=== PATIENT | female | born 1950 | race Caucasian/White ===

== ENCOUNTER 2018-02-20 06:35 | Emergency (ER) | payer BC, MEDICARE ==
[2018-02-20] MEDS ORDERED: ONDANSETRON HCL IV 4 MG/2 ML VIAL IVP ONE (07:03)
[2018-02-20] MEDS ORDERED: ACETAMINOPHEN 1,000 MG/100 ML BTL IVPB ONE (07:03)
--- NOTE | 2018-02-20 07:09 | Emergency Department Record ---
History of Present Illness - General Chief Complaint: Abdominal Pain Stated Complaint: ABD PAIN Time Seen by Provider: 02/20/18 06:57 Source: Patient Mode of Arrival: Ambulatory Limitations: No limitations - History of Present Illness Initial Comments: 67 yo female presents with abdominal pain that woke her about 3 hours ago at 4am. The pain is in the epigastric area and RUQ. She feels like it is a gassy bloated feeling. No lower abdominal pain. No vomiting but she has some nausea. No diarrhea. She did have two loose stools. No fevers. She does have her gall bladder without history of abdominal surgery. She has a history of reflux with prior Butler's esophagus. She has had mild similar symptoms at different times in the past. PCP is Dr. Doherty in [place]. MD Complaint: Abdominal pain Onset/Timin -: Hour(s) (3) Location: Epigastric, RUQ Radiation: RUQ Migration to: Epigastric, RUQ Severity: Moderate Severity scale (1-10): 8 Quality: Fullness Consistency: Constant Improves With: Nothing Worsens With: Nothing Associated Symptoms: Nausea - Related Data Patient : No Home Medications Medication Instructions Recorded Confirmed Last Taken Alprazolam 0.25 mg PO BID PRN 02/20/18 02/20/18 Unknown Levothyroxine Sodium 112 mcg PO DAILY 02/20/18 02/20/18 Unknown Losartan/Hydrochlorothiazide 1 tab PO DAILY 02/20/18 02/20/18 Unknown [Losartan-Hctz 50-12.5 mg Tab] Allergies Allergy/AdvReac Type Severity Reaction Status Date / Time No Known Drug Allergies Allergy Verified 02/20/18 06:44 Travel Screening - Travel/Exposure Within Last 30 Days Have you traveled within the last 30 days?: No Review of Systems Constitutional: Denies: Chills, Fever, Malaise, Weakness Eyes: Denies: Eye discharge, Eye pain ENT: Denies: Congestion, Ear pain, Epistaxis, Throat pain Respiratory: Denies: Cough, Dyspnea, Hemoptysis, Wheezes Cardiovascular: Denies: Chest pain, Palpitations, Syncope Endocrine: Denies: Fatigue Gastrointestinal: Reports: As per HPI, Abdominal pain, Nausea. Denies: Constipation, Diarrhea, Hematemesis, Hematochezia, Melena, Vomiting Genitourinary: Denies: Dysuria, Urgency Musculoskeletal: Denies: Arthralgia, Back pain, Joint swelling, Myalgia, Neck pain Skin: Denies: Bruising, Change in color, Rash Neurological: Denies: Confusion, Headache Psychiatric: Denies: Anxiety Hematological/Lymphatic: Denies: Blood Clots, Easy bleeding, Easy bruising, Swollen glands Past Medical History - SOCIAL HISTORY Smoking Status: Never smoker Alcohol Use: None Drug Use: None - RESPIRATORY Hx Respiratory Disorders: No - CARDIOVASCULAR Hx Cardio Disorders: Yes Hx Hypertension: Yes - NEURO Hx Neuro Disorders: No - GI Hx GI Disorders: Yes Hx Reflux: Yes - Hx Genitourinary Disorders: No - ENDOCRINE Hx Endocrine Disorders: Yes Hx Thyroid Disease: Yes - MUSCULOSKELETAL Hx Musculoskeletal Disorders: Yes Hx Arthritis: Yes - PSYCH Hx Psych Problems: Yes Hx Anxiety: Yes - HEMATOLOGY/ONCOLOGY Hx Hematology/Oncology Disorders: No Family Medical History Any Significant Family History?: Yes Hx Cancer: Father, Mother, Grandparents Hx Dementia: Mother Hx Heart Disease: Grandparents Physical Exam - General General Appearance: Alert, Oriented x3, Cooperative, No acute distress Limitations: No limitations - Head Head exam: Atraumatic, Normal inspection - Eye Eye exam: Normal appearance. negative: Conjunctival injection, Periorbital swelling, Scleral icterus - ENT ENT exam: Normal exam, Mucous membranes moist, Normal orophraynx Ear exam: Normal external inspection Nasal Exam: Normal inspection Mouth exam: Normal external inspection Teeth exam: Normal inspection Throat exam: Normal inspection - Neck Neck exam: Normal inspection, Full ROM. negative: Tenderness - Respiratory Respiratory exam: Normal lung sounds bilaterally. negative: Respiratory distress - Cardiovascular Cardiovascular Exam: Regular rate, Normal rhythm, Normal heart sounds - GI/Abdominal GI/Abdominal exam: Soft, Tenderness (very soft abdomen, mild RUQ and epigatric tenderness). negative: Distended, Guarding, Rebound, Rigid - Rectal Rectal exam: Deferred - exam: Deferred - Extremities Extremities exam: Normal inspection, Full ROM, Normal capillary refill. negative: Calf tenderness, Pedal edema, Tenderness - Back Back exam: Denies: CVA tenderness (R), CVA tenderness (L) - Neurological Neurological exam: Alert, Normal gait, Oriented X3 - Psychiatric Psychiatric exam: Normal affect, Normal mood. negative: Agitated, Anxious - Skin Skin exam: Dry, Intact, Normal color, Warm Course Vital Signs 02/20/18 06:41 Temperature 98 F Pulse Rate [ 107 H Pulse Ox Probe] Respiratory 16 Rate Blood Pressure 152/87 [Left Arm] Pulse Ox 100 - Reevaluation(s) Reevaluation #1: Last meal was a bowel of ice cream at 9pm 02/20/18 07:09 EKG#1 [id number] NSR Rate 78 Intervals normal [place] normal ST normal 02/20/18 07:25 No acute changes on the CBC 02/20/18 07:59 No acute changes on the Lipase or LFT's The Glucose was 153 02/20/18 08:34 The US demonstrates multiple gall stones, no wall thickening or edema, no pericholecystic fluid The patient reports nausea and pain have resolved. 02/20/18 The case was discussed with Dr Lund. The patient has controlled pain, normal labs and no US findings of acute cholecystitis. She was referred for outpatient follow up Medical Decision Making - Lab Data Result diagrams: 02/20/18 06:45 02/20/18 06:45 Disposition Disposition: Discharge Clinical Impression: Gall bladder stones Abdominal pain Qualifiers: Abdominal location: epigastric Qualified Code(s): R10.13 - Epigastric pain Disposition: Home, Self-Care Condition: (1) Good Instructions: Biliary Colic (ED) Additional Instructions: Low fat low spicy diet this week You will be called for an appointment with Dr Lund next week in the surgery clinic Return if you have any vomiting, pain, fever or concerns Referrals: Warren Lund [DOCTOR OF OSTEOPATH] - [facility] Specialty [facility] [Provider Group] Forms: Patient Portal Access Time of Disposition: 09:17 Quality - Blood Pressure Screening Does Patient Have Any of the Following: No Blood Pressure Classification: Hypertensive Reading Systolic Measurement: 147 Diastolic Measurement: 98 Pre-Hypertensive Follow-up Interventions: Referral to alternative/primary care provider.
[2018-02-20 07:11] LABS: BASO % 0.2 % (0-6); EOS % 1.7 % (0-6); GRAN % 68.8 % (47-80); HEMATOCRIT 38.4 % (35.0-47.0); LYMPH % 22.2 % (16-45); MEAN CELL VOLUME 86.5 fl (81-97); MEAN CORPUSCULAR HGB CONC 31.3 g/dl (32-36); MEAN PLATELET VOLUME 8.8 fl (7.4-10.4); MONO % 7.1 % (0-9); PLATELET COUNT 245 K/uL (130-400); RED BLOOD COUNT 4.44 M/uL (3.80-5.40); RED CELL DISTRIBUTION WIDTH 15.2 % (11.5-14.5); WHITE BLOOD COUNT W/O DIFF 5.2 K/uL (4.2-12.2)
[2018-02-20 07:25] LABS: BLOOD UREA NITROGEN 19 mg/dL (8-23); CREATININE 0.8 mg/dL (0.5-0.9); EST GLOMERULAR FILTRATION RATE > 60 mL/min
[2018-02-20 07:26] LABS: TOTAL PROTEIN 7.5 g/dL (6.6-8.7)
[2018-02-20 07:28] LABS: GLUCOSE,RANDOM 153 mg/dL (74-109)
[2018-02-20 07:30] LABS: ALB/GLOB RATIO 1.3 (1.1-1.8); ALBUMIN 4.2 g/dL (4.0-5.0); ALT/SGPT 29 U/L (<33); AST/SGOT 28 U/L (10.0-35.0)
[2018-02-20 07:31] LABS: ALKALINE PHOSPHATASE 102 U/L (35-104); LIPASE 59 U/L (13-60)
--- NOTE | 2018-02-21 16:27 | ULTRASOUND REPORT ---
EXAM: ULTRASOUND ABDOMEN, COMPLETE HISTORY: EPIGASTRIC PAIN. TECHNIQUE: Routine ultrasound examination of the abdomen is performed. COMPARISON: None. FINDINGS: The pancreatic tail is obscured by overlying bowel gas. The pancreas is otherwise visualized and normal in appearance. The abdominal aorta is without aneurysmal dilatation. The inferior vena cava appears patent. The liver is not optimally visualized due to body habitus. To the extent visualized, the hepatic parenchyma is homogeneous. No hepatic mass is seen. No intra- nor extrahepatic biliary ductal dilatation is identified with the common hepatic duct measuring 2 mm. There are multiple mobile gallstones. No gallbladder wall thickening or pericholecystic fluid though there is a reported positive sonographic Ying sign. The spleen is at the upper limits of normal in size measuring 12 x 5 x 9 cm. No focal splenic lesion noted. Screening evaluation of the kidneys does not demonstrate hydronephrosis nor mass with the right kidney measuring 11 cm in length and the left kidney measuring 11 cm in length. There is borderline pelvic caliectasis on the left versus small peripelvic renal cysts. IMPRESSION: 1. CHOLELITHIASIS WITHOUT GALLBLADDER WALL THICKENING OR PERICHOLECYSTIC FLUID THOUGH THERE IS A POSITIVE SONOGRAPHIC YING SIGN. 2. BORDERLINE PELVIC CALIECTASIS ON THE LEFT VERSUS SMALL PERIPELVIC RENAL CYSTS. 3. BORDERLINE SPLENOMEGALY. JOB NUMBER: [id number] [facility]
== END 2018-02-20 09:31 | disposition home or self-care (01) ==
LOC: ER 06:35
DX: K80.20 Calculus of gallbladder without cholecystitis without obstruction (principal); R10.13 Epigastric pain; R11.0 Nausea; R19.7 Diarrhea, unspecified; I10 Essential (primary) hypertension
CPT/HCPCS: 99284 ×2; 96365; 96366; 96375; 83690; 85025; 85730; 85610; 80053; 76700; 93005; 93010; J2405

== ENCOUNTER 2018-04-12 03:57 | Emergency (ER) | payer BC, MEDICARE ==
--- NOTE | 2018-04-12 04:21 | Emergency Department Record ---
History of Present Illness - General Chief complaint: Facial Swelling Stated complaint: FACIAL SWELLING Time Seen by Provider: 04/12/18 04:14 Source: Patient Mode of Arrival: Ambulatory Limitations: No limitations - History of Present Illness Initial Comments: 67 yo female presents to ED for evaluation of intermittent left upper lip swelling for the the past 4 days. Patient also reports mild redness and itching to the right hand. Patient denies any new foods, medications, or cleansers. Patient does take Hyzaar regularly. Patient denies pain or trauma to the area. Patient denies throat swelling or difficulty in breathing symptoms. MD Complaint: Other Onset/Timin -: Days(s) Exposure: Unknown Symptoms: Itching, Rash, Facial swelling, Lip swelling Treatment Prior to Arrival: None Previous Allergy History: None - Related Data Previous Rx's Medication Instructions Recorded Prednisone [Prednisone 20Mg] 20 mg PO TID #12 tab 04/12/18 Allergies Allergy/AdvReac Type Severity Reaction Status Date / Time gabapentin [From Neurontin] Allergy numbness Verified 04/12/18 04:02 propoxyphene [From Darvon] Allergy ALTERED Verified 04/12/18 04:02 MENTAL STATUS Travel Screening - Travel/Exposure Within Last 30 Days Have you traveled within the last 30 days?: No - Travel Symptoms Symptom Screening: None Review of Systems Constitutional: Denies: Chills, Fever, Malaise, Night sweats Eyes: Denies: Eye discharge, Eye pain ENT: Reports: Other (left upper lip swelling). Denies: Congestion, Ear pain, Epistaxis Respiratory: Denies: Cough, Dyspnea Cardiovascular: Denies: Chest pain, Dyspnea on exertion Endocrine: Denies: Fatigue, Heat or cold intolerance Gastrointestinal: Denies: Abdominal pain, Nausea, Vomiting Genitourinary: Denies: Incontinence, Retention Musculoskeletal: Denies: Arthralgia, Back pain Skin: Denies: Bruising, Change in color Neurological: Denies: Abnormal gait, Confusion, Headache, Seizure Psychiatric: Denies: Anxiety Hematological/Lymphatic: Denies: Anemia, Blood Clots Past Medical History - SOCIAL HISTORY Smoking Status: Never smoker - RESPIRATORY Hx Respiratory Disorders: No - CARDIOVASCULAR Hx Cardio Disorders: Yes Hx Hypertension: Yes - NEURO Hx Neuro Disorders: No - GI Hx GI Disorders: Yes Hx Reflux: Yes Comment:: Gallstones - Hx Genitourinary Disorders: No - ENDOCRINE Hx Endocrine Disorders: Yes Hx Thyroid Disease: Yes - MUSCULOSKELETAL Hx Musculoskeletal Disorders: Yes Hx Arthritis: Yes - PSYCH Hx Psych Problems: Yes Hx Anxiety: Yes - HEMATOLOGY/ONCOLOGY Hx Hematology/Oncology Disorders: No Family Medical History Any Significant Family History?: Yes Hx Cancer: Father, Mother, Grandparents Hx Dementia: Mother Hx Heart Disease: Grandparents Physical Exam - General General Appearance: Alert, Oriented x3, Cooperative, No acute distress Limitations: No limitations - Head Head exam: Atraumatic, Normocephalic, Normal inspection Head exam detail: negative: Abrasion, Contusion, Davila's sign, General tenderness, Hematoma, Laceration - Eye Eye exam: Normal appearance. negative: Conjunctival injection, Periorbital swelling, Periorbital tenderness, Scleral icterus - ENT Ear exam: negative: Auricular hematoma, Auricular trauma Nasal Exam: negative: Active bleeding, Discharge, Dried blood, Foreign body Mouth exam: Other (Very mild STS to the left upper lip compared with the right) . negative: Drooling, Laceration, Muffled voice, Tongue elevation - Neck Neck exam: Normal inspection. negative: Meningismus, Tenderness - Respiratory Respiratory exam: Normal lung sounds bilaterally. negative: Rales, Respiratory distress, Rhonchi, Stridor - Cardiovascular Cardiovascular Exam: Regular rate, Normal rhythm, Normal heart sounds - GI/Abdominal GI/Abdominal exam: Soft. negative: Rebound, Rigid, Tenderness - Rectal Rectal exam: Deferred - exam: Deferred - Extremities Extremities exam: Normal inspection. negative: Calf tenderness, Pedal edema, Tenderness - Back Back exam: Denies: CVA tenderness (R), CVA tenderness (L) - Neurological Neurological exam: Alert, Normal gait, Oriented X3 - Psychiatric Psychiatric exam: Normal affect, Normal mood - Skin Skin exam: Normal color. negative: Abrasion Type of lesion: negative: abrasion Course Vital Signs 04/12/18 04:02 Temperature 98.1 F Pulse Rate [ 108 H Pulse Ox Probe] Respiratory 16 Rate Blood Pressure 145/85 [Left Arm] Pulse Ox 99 - Reevaluation(s) Reevaluation #1: 04/12/18 04:19 Patient is well appearing on examination with very mild STS to the left upper lip. Will initiate treatment with prednisone, patient was counseled to hold her Hyzaar until seen by her PCP. Patient denies throat swelling or wheezing symptoms, no evidence of systemic anaphylatic reaction on examination. Patient appears stable for discharge at this time. Disposition Disposition: Discharge Clinical Impression: Lip swelling Disposition: Home, Self-Care Condition: (2) Stable Instructions: Adverse Drug Reaction (ED) Additional Instructions: Return to ED if your symptoms worsen or if you have any concerns. Prednisone as directed. Discontinue Hyzaar until seen by your PCP. Follow-up with your family doctor in 1-3 days as directed. Prescriptions: Prednisone [Prednisone 20Mg] 20 mg PO TID #12 tab Time of Disposition: 04:24 Quality - Quality Measures Quality Measures: N/A - Blood Pressure Screening Does Patient Have Any of the Following: No Blood Pressure Classification: Pre-Hypertensive BP Reading Systolic Measurement: 145 Diastolic Measurement: 85 Screening for High Blood Pressure: < Pre-Hypertensive BP, F/U Documented > [ [id number]] Pre-Hypertensive Follow-up Interventions: Referral to alternative/primary care provider.
[2018-04-12] MEDS: PREDNISONE 20 MG TAB PO ONE (04:29)
== END 2018-04-12 04:33 | disposition home or self-care (01) ==
LOC: ER 03:57
DX: R22.0 Localized swelling, mass and lump, head (principal); I10 Essential (primary) hypertension
CPT/HCPCS: 99282; J7512